=== PATIENT | male | born 1970 | race Caucasian/White ===

== ENCOUNTER 2018-04-16 09:02 | Emergency (ER) | payer BC, SELFPAY ==
--- NOTE | 2018-04-16 09:09 | NUR.NOTE ---
pt reuben that at 0700 he slipped down 3 stairs the incident resulted in right knee pain lateral side 10/30 does not know how his leg rotated
[2018-04-16 09:11] VITALS: BP 161/95; PULSE 99; RESP 16; TEMP 37.2; O2SAT 95
--- NOTE | 2018-04-16 09:19 | ED.GENADUL_ITS ---
Discharge Plan Disposition Patient Disposition: HOME Condition: Improving Discharge Details Chief Complaint: Orthopedic Clinical Impression: Rupture of right quadriceps muscle Primary Care Provider: None,None ED Provider: Herrera Ortiz Home Meds and New Rx's Prescriptions: No Action No Known Home Meds RF: 0 Discharge Instructions Instructions: Knee Immobilizer (ED) Additional Instructions: We discussed her case with Dr. Ramsey of orthopedics. You will likely need operative repair of your quadriceps rupture. If you do not hear from the office, please call [phone] to arrange follow-up time. Ice and elevate the leg to reduce pain and swelling. Wear the brace, weightbearing as tolerated and may use crutches as needed. Tylenol and/or ibuprofen as needed for discomfort. Medical Decision Making Slip and fall on stairs with fall onto a flexed right knee with striking of patella on ground. Pain at knee with swelling. + weightbearing. Denies other injury. On exam he has a palpable defect of the distal third quadriceps and inability to extend the knee against gravity. Concern for quadriceps rupture, must exclude underlying bony injury. Patient given oral analgesia, ice, referred for x-ray which does not reveal underlying bony injury. Case discussed with Dr. Ramsey. We will immobilize the joint, weightbearing as tolerated with crutches, and follow-up in orthopedics for consideration of operative repair. HPI General Mode of arrival: ambulatory . Date/Time Provider Initiated Documentation: 04/16/18 09:10 . Limitations to Documentation: no limitations . Information obtained by: patient . History of Present Illness 47 year old M presents to the emergency department with the chief complaint of Fall downstairs at 7 AM and right knee pain, described as moderate, Quality is described as aching, and is localized to the right and lower extremity. Patient reports no radiation. Patient started experiencing this hour(s) and it has been constant. Rest improves symptom(s), Movement worsens symptoms . Patient notes no other symptoms.; denies headaches. Patient did receive the following treatments prior to arrival, none Related Data Home Medications Medication Instructions Recorded Confirmed Unknown [No Known Home Meds] 04/16/18 04/16/18 Allergies Allergy/AdvReac Type Severity Reaction Status Date / Time No Known Allergies Allergy Unverified 04/16/18 09:13 General Stated Complaint: Orthopedic JOHN: 3 Review of Systems Review of Systems 8 systems reviewed and otherwise neg PFSH Social History Smoking and Tabacco status: Current every day Exam Narrative Exam Narrative: GEN: awake, alert, oriented 3. Pleasant, well groomed, interactive. HEAD: Normocephalic, atraumatic ENT: Mucous membranes moist, oropharynx unremarkable, External ear exam unremarkable EYES: PERRL, EOMI NECK: Full ROM, no MAKENNA, no menigismus CHEST/RESP: Nontender, clear to auscultation bilateral, no wheeze/rhonchi/rales CARDIOVASCULAR: RRR, no murmur, rub artur. 2+ Rad pulse bilateral ABDOMEN: Soft, nontender, no mass. +Bowel sounds EXT: Palpable defect right distal third quadriceps. Patient unable to lift right leg against gravity at the knee joint. Remainder of motor is 5 out of 5 throughout., no edema, no rash Neuro: Grossly normal neurologic exam, conversant, interactive. Psych: Speech fluent, thoughts congruent, affect normal Course Vital Signs Temperature 37.2 C 04/16/18 09:11 Pulse 99 H 04/16/18 09:11 Respiratory Rate 16 04/16/18 09:11 Blood Pressure 161/95 H 04/16/18 09:11 Pulse Oximetry 95 04/16/18 09:11 Temperature 37.2 C 04/16/18 09:11 Temperature Source Skin 04/16/18 09:11 Pulse 99 H 04/16/18 09:11 Respiratory Rate 16 04/16/18 09:11 Respiratory Effort 04/16/18 09:13 Blood Pressure 161/95 H 04/16/18 09:11 Blood Pressure Position Sitting 04/16/18 09:11 Pulse Oximetry 95 04/16/18 09:11 Oxygen Delivery Method Room Air 04/16/18 09:11 Oxygen Flow Rate 0 04/16/18 09:11 Pain Level 9 04/16/18 09:11
--- NOTE | 2018-04-16 09:29 | DI.RAD_ITS ---
SYMPTOM/DIAGNOSIS: KNEE PAIN,? QUAD RUPTURE RIGHT KNEE: No fracture or hemarthrosis is seen. There are degenerative changes, greatest at the medial tibial plateau. There is spurring at the tibial tubercle. IMPRESSION: No evidence of fracture. No definite evidence of quadriceps tendon rupture.
--- NOTE | 2018-04-16 09:30 | NUR.NOTE ---
pt developed flu like symptoms last night that have persisted into today as well as lower right flank pain
[2018-04-16] MEDS: Acetaminophen 500 MG TAB (09:36)
[2018-04-16 10:25] VITALS: BP 161/95; PULSE 99; RESP 16; TEMP 37.2; O2SAT 95
== END 2018-04-16 10:24 | disposition home or self-care (01) ==
PROVIDERS: Emergency Provider Emergency Medicine
DX: S76.111A Strain of right quadriceps muscle, fascia and tendon, initial encounter (principal); W10.8XXA Fall (on) (from) other stairs and steps, initial encounter
CPT/HCPCS: 29505; 73562; 99283; E0114; L1830

== ENCOUNTER 2018-04-19 08:43 | Day surgery (SDC) | payer BC, SELFPAY ==
[2018-04-19] VITALS (7 sets, daily range): BP systolic 136–148; BP diastolic 84–102; PULSE 84–104; RESP 12–20; TEMP 35.9–36.6; O2SAT 92–96
--- NOTE | 2018-04-19 07:56 | W.PREOPHP ---
Date of service: 04/19/18 Time of Service: 09:56 Assessment and Plan (1) Rupture of right quadriceps muscle: Start date: 04/16/18 Current visit: No Status: Acute Clinton is a 47-year-old who suffered a fall onto a flexed right knee. He has an apparent quadriceps rupture. Defect is palpable and he is unable to extend the leg. For this reason, I recommend operative intervention. I reviewed the risk of the procedure to include bleeding, infection, pain, stiffness, damage to nerves and vessels, damage to muscle tendons, weakness, need for repeat procedures, hardware prominence, blood clot. Despite these risks and elects to proceed. He has no other major medical issues. He is obese. I discussed rehabilitation with him. We will proceed with surgery today as an outpatient. Qualifiers: Encounter type: initial encounter Qualified Code(s): S76.111A - Strain of right quadriceps muscle, fascia and tendon, initial encounter History of Present Illness Chief Complaint: Right Quad Rupture Narrative: Clinton is an otherwise active and healthy 47-year-old who suffered a fall onto a flexed right knee. He presented to the emergency department with inability to ambulate, inability to straighten his leg, and pain and swelling. He was diagnosed with a quadriceps rupture. He denies any previous history of pain or discomfort about the right knee. He had no notable fracture. He had no other complaints of pain. He currently has pain and swelling of the right knee. He is wearing a knee brace. He is using crutches. Review of Systems Review of Systems All systems reviewed & are unremarkable except as noted in HPI and below PFSH Social History Smoking and Tabacco status: Current every day Meds Home Medications Medication Instructions Recorded Confirmed Type multivitamin,tx-minerals [Vitamins 1 packet PO BID 04/18/18 04/19/18 History and Minerals] ibuprofen 600 mg PO 04/19/18 History Allergies Allergy/AdvReac Type Severity Reaction Status Date / Time No Known Allergies Allergy Unverified 04/19/18 09:02 Exam Const General: cooperative, healthy appearing, comfortable and no acute distress Nutritional Appearance: obese Orientation: alert, awake and oriented x3 Resp Effort & Inspection: normal respiratory effort Auscultation: wheezes inspiratory wheezes (lower bilaterally, upper right) Cardio Rate: regular rate Rhythm: regular rhythm Extrem Other: Evaluation of the right knee shows significant swelling. There is a palpable defect of the quadriceps musculature just proximal and slightly medial to the patella. He is unable to straight leg raise. He is unable to extend the knee. There is no significant pain to palpation of the patella but significant pain within the defect. No pain around the knee itself at the level of the joint lines. Sensation intact light touch of the femoral nerve distribution, deep insufficient peroneal nerves, and tibial nerve. The foot is warm well perfused with palpable DP PT pulse. He has intact ankle dorsiflexion, plantarflexion, great toe extension and flexion. Results Imaging Imaging Studies: X-ray of the right knee from the emergency department does not show any signs of fracture. There is some old ossific changes at the level of the tibial tuberosity. There is no significant patellar abnormality seen. No clear effusion appreciated.
[2018-04-19] MEDS: Lactated Ringers 1,000 ML 80 ML IV (09:25)
--- NOTE | 2018-04-19 10:12 | W.PM.DSUDISC ---
Discharge Plan Disposition Patient Disposition: HOME Condition: Good Discharge Details Reason For Visit: (R) QUAD TEAR Attending Provider: Landen Ramsey Primary Care Provider: None,None Home Meds and New Rx's Prescriptions: New acetaminophen 500 mg tablet 1,000 mg PO Q8H PRN (Reason: pain) Qty: 90 RF: 3 ibuprofen 600 mg tablet 600 mg PO TID PRNQty: 90 RF: 3 oxycodone 5 mg tablet 5 mg PO Q4H Qty: 12 RF: 0 aspirin 81 mg tablet,delayed release (DR/EC) 81 mg PO BID Qty: 60 RF: 0 Discontinued Vitamins and Minerals Tablet 1 packet PO BID RF: 0 ibuprofen 600 mg Tablet 600 mg PO RF: 0 Discharge Instructions Additional Instructions: Activity: You may bear weight as tolerated on the leg as long as the brace is on and you are using crutches for support. You should keep the brace on at all times when you are up and mobilizing until your follow-up. You should use crutches to support the knee. You may move your ankle and toes as needed. You may unstrap the knee immobilizer when you are not up and your knee is supported. You may apply ice with the CryoCuff this way. Dressing: You should keep the knee dressing in place until your follow-up appointment. If it becomes soiled or it unravels, you should call to notify Dr. Ramsey and/or his staff. You may rewrap or overwrap until the follow-up. Medications: - You should take Tylenol and Ibuprofen around the clock for the first days-weeks. This will cover baseline pain control. - You have been prescribed a stronger medication if needed. If this is necessary, and you need a refill, please call Dr. Ramsey's office or page him through the hospital. Referrals: Landen Ramsey MD [ [facility] STAFF PHYSICIAN] - Equipment/Supplies: Partial Weight Bearing Crutches Activity:: Elevate Remove Dressings/Wound Care:: Do Not Remove Diet:: As Tolerated Discharge Orders Discharge Orders: Discharge Order (Routine); Ordered 04/19/18 Ordered By: Landen Ramsey DS: Diagnosis Discharge Diagnosis (1) Rupture of right quadriceps muscle: Status: Acute
[2018-04-19] MEDS: Bupivacaine 0.25% Pres-Free 30 ML VIAL ×2 (10:18→11:58)
[2018-04-19] MEDS: Bupivacaine LIPOSOME/PF 133 MG/10 ML VIAL IJ ×2 (10:18→11:58)
[2018-04-19] MEDS: oxyCODONE 5 MG TAB PO (13:43)
--- NOTE | 2018-04-20 08:08 | ROE_ITS ---
Date of service: 04/19/18 Time of Service: 12:01 Operative Note DATE OF PROCEDURE: 04/19/18 PRE-OP DIAGNOSIS: Right quadriceps tear POST-OP DIAGNOSIS: same PROCEDURE: Operative repair of right quadriceps tendon SURGEON: Landen Ramsey HEALTH AND SOCIAL CARE TEACHER: Reymundo Grossman ANESTHESIA: GETA and regional ESTIMATED BLOOD LOSS: 50 PATHOLOGY: none sent TOURNIQUET TIME: 0 COMPLICATIONS: None Patient was transported to: PACU Patient's condition: stable Indications: Clinton is a 47-year-old had a fall onto a hyperflexed right knee. He had immediate pain, inability to ambulate, and swelling. He was seen in the emergency department and diagnosed with a quadriceps rupture. Given the nature of this injury I recommended operative fixation. I reviewed the risk of the procedure to include bleeding, infection, pain, stiffness, damage to nerves and vessels, damage to muscles and tendons, weakness, need for repeat procedures. Despite these risks, he elects to proceed. Findings: There is complete rupture of the quadriceps mechanism primarily from the lateral aspect. The entire central portion of the quadriceps tendon was avulsed off the patella. The deep slip of the intermedius tendon was still attached and the majority of the vastus medialis oblique S muscle attachments to the superomedial patella were still intact. The retinaculum is not torn medially was torn laterally. This was repaired using #2 FiberWire pull-through tunnels within the patella and tied over the patella. Procedure Description: Clinton was greeted in the preoperative holding area. His identity was confirmed the correct site was identified and marked. The consent was read the patient and signed. History physical was performed and updated. He was then taken back to the PACU where a fascia iliac block was performed. After successful regional anesthetic was administered he was taken to the operating room. A general anesthetic was given. He is placed in the supine position with all bony prominences well-padded. A bump was placed underneath the right leg to reduce some of the external rotation of his limb. The right leg was prepped with ChloraPrep and draped in a standard fashion. No tourniquet was used. Prophylactic antibiotics in the form of cefazolin were given. A timeout was performed for safe surgery. A midline incision was then made overlying the distal aspect of the thigh and to just below the inferior pole the patella. Sharp dissection was used to the init ial layers. There was significant bursitis seen which was excised. Immediately once through the deep fascia there was a large amount of joint fluid and hematoma expressed. There is an obvious defect of the quadriceps mechanism. The entire central portion of the quadriceps tendon was avulsed cleanly off the bone. There is a split extending laterally to the retinaculum. The deep slip of the intermedius tendon was still attached and that the majority of the vastus medialis oblique S musculature was also attached to the superomedial patella. The torn tendon edges were debrided sharply with a rongeur. The superior aspect of the patella where the quadriceps tendon had been pulled off was also debrided down with a rongeur and then also roughened with a rasp. Excess synovium was also removed. The joint was washed out thoroughly as were the muscle edges. Using a #2 FiberWire, a locking Krak?w stitches within the distal aspect of the central quadriceps tendon both on the underside and the anterior side of the tendon. These were brought out of the tendon edge. 2 FiberWire sutures were placed leaving 4 strands out of the distal stump of the quadriceps tendon. With a 2 mm drill, bone tunnels were placed into the patella. Using a suture passing device I brought the sutures through the tunnels. These were tightened and then tied down completely reapproximating the distal aspect of the quadriceps tendon onto the patella. The knee was tested to 45 degrees without any gapping noted. The split between the vastus medialis and the central quadriceps tendon was then reapproximated with a #1 Vicryl. The distal aspect of the quadriceps tendon and the distal tendinous portion of the vastus medialis was repaired with a #2 FiberWire. The retinacular split laterally was also repaired with a #1 Vicryl. And an area of delamination from the anterior patella was brought over and repaired as well with a #1 Vicryl. The wound was once again irrigated. The periosteum and all soft tissues deep within the wound were injected with a mixture of 30 cc of 0.25% bupivacaine with 10 cc of Exparel. The deep tissues were closed with 0 Vicryl followed by 2-0 Vicryl. The skin was closed with 4-0 Monocryl. A Mepilex dressing was applied. He is placed in a knee immobilizer. At the end of the case, all counts are correct. He was taken back to the PACU in stable condition.
== END 2018-04-19 14:43 | disposition home or self-care (01) ==
PROVIDERS: Visit Provider Student in an Organized Health Care Education/Training Program
PROC: (CPT 27430; principal; 2018-04-19 11:00)
DX: S76.111A Strain of right quadriceps muscle, fascia and tendon, initial encounter (principal); W19.XXXA Unspecified fall, initial encounter; X50.0XXA Overexertion from strenuous movement or load, initial encounter; F17.210 Nicotine dependence, cigarettes, uncomplicated
CPT/HCPCS: 27430; 64450; C1713; 76942; 99223; J0690; J1100; J1885; J2250; J2405; L1830

== ENCOUNTER 2022-08-31 11:13 | Emergency (ER) | payer OTHER, SELFPAY ==
[2022-08-31 11:19] VITALS: BP 203/125; PULSE 91; RESP 18; TEMP 36.8; O2SAT 102
--- NOTE | 2022-08-31 11:30 | DI.RAD_ITS ---
Exam(s) XR HAND LT COMPLETE EXAM: XR HAND LT COMPLETE CLINICAL HISTORY: injury. TECHNIQUE: 2D digital imaging was performed. COMPARISON: No exams were available for comparison FINDINGS: 3 views There is soft tissue avulsions of the 2nd and 3rd fingers. Comminuted fractures of the tuft of the d istal phalanges of these fingers noted, best seen on the lateral views. Avulsed nailbeds evident. N o metallic foreign bodies. No other fractures identified. IMPRESSION: Soft tissue and subjacent bone findings of the tuft of the distal phalanges of 2nd and 3rd fingers. DATA REPOSITORY: RADIATION DOSE DELIVERED:
--- NOTE | 2022-08-31 12:15 | ED.GENADUL_ITS ---
Discharge Plan Disposition Patient Disposition: Home Discharge Details Clinical Impression: Finger laceration, Closed fracture of tuft of distal phalanx of finger, Hypertension Primary Care Provider: None,None ED Provider: Walter Ferreira Home Meds and New Rx's Prescriptions: New lisinopril 20 mg tablet 20 mg PO DAILY Qty: 30 0RF cephalexin 500 mg capsule 500 mg PO Q6H 7 Days Qty: 28 0RF oxycodone-acetaminophen [Percocet] 5-325 mg tablet 1 tab PO Q8H PRN (Reason: pain) Qty: 10 0RF No Action acetaminophen 500 mg tablet 1,000 mg PO Q8H PRN (Reason: pain) Qty: 90 3RF ibuprofen 600 mg tablet 600 mg PO TID PRNQty: 90 3RF oxycodone 5 mg tablet 5 mg PO Q4H Qty: 12 0RF aspirin 81 mg tablet,delayed release (DR/EC) 81 mg PO BID Qty: 60 0RF Discharge Instructions Instructions: Finger Fracture (ED), Finger Laceration (ED), Hypertension (ED) Stand Alone Forms: Work Release Discharge Data Discharge Date/Time-TO BE ENTERED AT DEPARTURE: 08/31/22 14:10 HPI General Date/Time Provider Initiated Documentation: 08/31/22 11:32 . History of Present Illness described as moderate, Quality is described as other (injury), and is localized to the upper extremity. Patient started experiencing this minute(s) and it has been constant. HPI Narrative: 52 year old male presents to the ED with c/o finger injury at work today [employer]. He was cutting a sheet plywood on table saw, and as he was pushing it through his slipped forward, hitting the blade. He says it hit the tip of his 2nd and 3rd fingers. He had it cleaned and dressed at work prior to coming in. He is right hand dominant, unknown last tetanus. Pt noted to have very high BP readings in the ED, denies any known hx of htn, although admits he hasn't been to a doctor in some time. Related Data Home Medications Medication Instructions Recorded Confirmed acetaminophen 500 mg tablet 1,000 mg PO Q8H PRN pain #90 tabs 04/19/18 08/22/18 aspirin 81 mg tablet,delayed 81 mg PO BID #60 tabs 04/19/18 08/22/18 release ibuprofen 600 mg tablet 600 mg PO TID PRN #90 tabs 04/19/18 08/22/18 oxycodone 5 mg tablet 5 mg PO Q4H #12 tabs 04/19/18 08/22/18 cephalexin 500 mg capsule 500 mg PO Q6H 7 days #28 caps 08/31/22 lisinopril 20 mg tablet 20 mg PO DAILY #30 tabs 08/31/22 oxycodone-acetaminophen 5 mg-325 1 tab PO Q8H PRN pain #10 tabs 08/31/22 mg tablet (Percocet) Previous Rx's Medication Instructions Recorded acetaminophen 500 mg tablet 1,000 mg PO Q8H PRN pain #90 tabs 04/19/18 aspirin 81 mg tablet,delayed 81 mg PO BID #60 tabs 04/19/18 release ibuprofen 600 mg tablet 600 mg PO TID PRN #90 tabs 04/19/18 oxycodone 5 mg tablet 5 mg PO Q4H #12 tabs 04/19/18 cephalexin 500 mg capsule 500 mg PO Q6H 7 days #28 caps 08/31/22 lisinopril 20 mg tablet 20 mg PO DAILY #30 tabs 08/31/22 oxycodone-acetaminophen 5 mg-325 1 tab PO Q8H PRN pain #10 tabs 08/31/22 mg tablet (Percocet) Allergies Allergy/AdvReac Type Severity Reaction Status Date / Time No Known Allergies Allergy Unverified 07/11/18 14:49 General Stated Complaint: Laceration JOHN: 3 PFSH All Active Problems (Updated 05/28/18 @ 17:14 by Mechelle Robertson) Finger laceration (Acute) Closed fracture of tuft of distal phalanx of finger (Acute) Hypertension (Chronic) Rupture of right quadriceps muscle (Acute) DOS: 04/19/18 Dr. Ramsey Social History Smoking/Tobacco Use Status: Current every day Tobacco Type: cigarettes Years smoked: 34 Smoking risk assessment performed?: Yes Alcohol Intake: current Alcohol Intake frequency: holidays/special occasions only Drug use: Daily Substance use type: marijuana Housing: other Do you feel safe at home: Yes Do you feel safe in your relationship?: Yes Exam Narrative Exam Narrative: Const: well appearing, no acute distress, morbidly obese HEENT: normocephalic, atraumatic; MMM Lungs: CTA, no wheezing or rales Heart: RRR Ext: well perfused Neuro: non-focal Skin: no rashes Left 2nd digit with jagged injury to distal aspect of finger involving distal aspect nail which is avulsed away, and essentially a flap ~2cm total. 3rd digit with lac to the most distal aspect that creates a flap, ~2cm length in total. Course 52 yo with fingers vs table saw, noted to be very hypertensive, although asymptomatic. discussed work up for this, he declined, says he doesn't have insurance for another month and wants to wait. I discussed risks of uncont rolled HTN with him, including GA, CVA, renal dz, even , which he verbalized understanding. Will plan on starting some meds but needs f/u and further eval to adequately get it under control. Reevaluation(s) Initial Evaluation: Left 2nd and 3rd fingers digitally blocked with 1% lidocaine with good effect. he was cleaned initially by RN with NS and syringe irrigation, and again by me. Vital Signs Vital signs: Vital Signs Temperature 36.8 C 08/31/22 11:19 Pulse 91 H 08/31/22 11:19 Respiratory Rate 18 08/31/22 11:19 Blood Pressure 203/125 H 08/31/22 11:19 Pulse Oximetry 102 H 08/31/22 11:19 Temperature 36.8 C 08/31/22 11:19 Pulse 91 H 08/31/22 11:19 Respiratory Rate 18 08/31/22 11:19 Respiratory Effort Normal, Non-Labored 08/31/22 11:43 Blood Pressure 203/125 H 08/31/22 11:19 Pulse Oximetry 102 H 08/31/22 11:19 Oxygen Delivery Method Room Air 08/31/22 11:19 Oxygen Flow Rate 0 08/31/22 11:19 Procedures Laceration Laceration 1: Size (cm): 2 Description: flap Local Anesthetic: Lidocaine 1% Skin layer closed with: nylon Size (cm): 5-0 Number of sutures: 5 Technique: simple, interrupted Laceration 2: Size (cm): 2 Description: flap Skin layer closed with: nylon Size (cm): 5-0 Number of sutures: 5 Technique: simple, interrupted
--- NOTE | 2022-08-31 15:01 | PDOC.CMPRO ---
Date of service: 08/31/22 Time of Service: 15:01 Care Management Progress Note Progress Note Text Progress Note Text: At the request of nursing staff, BENJAMÍN meets with Clinton to address financial concerns. He advises he recently started a new job and won't be covered by insurance until the end of August. Further discussion reveals that he is being treated in the ED for injuries suffered at work. Therefore, his ED visit will be covered by Workmen's Comp. While in the ED, Clinton is found to be hypertensive and is prescribed Lisinopril 20 mg daily. BENJAMÍN contacts his pharmacy ([facility]) to inquire about the cost of the prescription ($19.99). When the cost is relayed to Clinton, he advises he can pay for it out of pocket and declines assistance with paying for the prescription. Lastly, BENJAMÍN contacts [facility] to request they schedule an ED follow up appointment for Clinton and to advise them he is being started on Lisinopril.
--- NOTE | 2022-09-01 11:08 | NUR.NOTE ---
Nursing Note: Accessed pt chart for work release.
--- NOTE | 2022-09-05 18:35 | NUR.NOTE ---
Nursing Note: Patient called asking for a work note to get him through the when his ortho appt is. Antelmo Suarez reviewed the chart and wrote for him to be off through . Patient notified of the new work note.
== END 2022-08-31 14:10 | disposition home or self-care (01) ==
PROVIDERS: Emergency Provider Emergency Medicine
DX: S62.661B Nondisplaced fracture of distal phalanx of left index finger, initial encounter for open fracture (principal); S62.663B Nondisplaced fracture of distal phalanx of left middle finger, initial encounter for open fracture; I10 Essential (primary) hypertension; F17.210 Nicotine dependence, cigarettes, uncomplicated; Z79.82 Long term (current) use of aspirin; W31.2XXA Contact with powered woodworking and forming machines, initial encounter; Y93.H3 Activity, building and construction; Y92.89 Other specified places as the place of occurrence of the external cause; Y99.0 Civilian activity done for income or pay
CPT/HCPCS: 12002; 90472; 99283; 73130

== ENCOUNTER 2022-09-23 15:43 | Outpatient (REF) | payer SELFPAY ==
[2022-09-23 16:43] LABS: Abs Immature Grans 0.04 10^3/uL (0.0-0.06); Absolute Basophil Count 0.08 10^3/uL (0.0-0.2); Absolute Eosinophil Count 0.18 10^3/uL (0.0-0.7); Absolute Monocyte Count 0.61 10^3/uL (0.1-0.8); Absolute Neutrophil Count 6.12 10^3/uL (1.2-6.7); Basophils % 0.9; HGB 16.5 g/dL (13.5-17.5); Immature Grans % 0.5; Lymphocytes % 20.4; MCH 32.1 pg (27.0-33.0); MCHC 35.1 % (32.0-36.0); MCV 91 fL (80-95); MPV 11.6 fL (8.0-11.0); Monocytes % 6.9; Neutrophils % 69.3; Platelet Count 225 10^3/uL (130-400); RBC 5.14 10^6/uL (4.36-5.78); RDW 12.6 % (11.8-14.1); RDW-SD 42.7 fL; WBC 8.83 10^3/uL (4.4-10.8)
[2022-09-23 17:52] LABS: ALT 26 U/L (16-63); AST 23 U/L (15-37); Albumin 3.7 g/dL (3.4-5.0); Alkaline Phosphatase 99 U/L (46-116); Anion Gap 9.5 mmol/L (3-11); BUN 13 mg/dL (7-18); Bilirubin, Total 0.3 mg/dL (0.2-1.0); CO2 26.5 mmol/L (21.0-32.0); Calculated LDL 163 mg/dL (<100); Chloride 102 mmol/L (98-107); Cholesterol 251 mg/dL (<200); Glucose 108 mg/dL (74-106); HDL Cholesterol 36 mg/dL (40-60); Potassium 3.8 mmol/L (3.5-5.1); Sodium 138 mmol/L (136-145); Total Protein 7.8 g/dL (6.4-8.2); Triglyceride 263 mg/dL (<150)
[2022-09-23 17:56] LABS: Hemoglobin A1C 5.7 % (<5.7)
[2022-09-23 18:41] LABS: Vitamin D 25 Total 16.2 ng/mL (30-100)
[2022-09-26 09:57] LABS: Hepatitis C Ab w Rflx HCV PCR Negative (Negative)
[2022-09-26 10:18] LABS: HIV-1/2 Ag & Ab Screen Negative (Negative)
== END 2022-09-23 15:44 | disposition home or self-care (01) ==
LOC: NCHCN 15:43
PROVIDERS: PCP Nurse Practitioner Family; Visit Provider Nurse Practitioner Family
DX: Z00.00 Encounter for general adult medical examination without abnormal findings (principal); I10 Essential (primary) hypertension; E66.01 Morbid (severe) obesity due to excess calories; Z11.4 Encounter for screening for human immunodeficiency virus [HIV]; Z11.59 Encounter for screening for other viral diseases; R73.09 Other abnormal glucose; E55.9 Vitamin D deficiency, unspecified
CPT/HCPCS: 80053; 80061; 82306; 86803; 87389; 83036; 85025

== ENCOUNTER 2023-03-07 11:39 | Day surgery (SDC) | payer OTHER, SELFPAY ==
[2023-03-07 12:16] VITALS: BP 191/138; PULSE 89; RESP 18; TEMP 36.8; O2SAT 96
[2023-03-07] MEDS: Lisinopril 20 MG TAB PO (12:46)
--- NOTE | 2023-03-07 13:01 | PDOC.DSDIS_ITS ---
Date of service: 03/07/23 Time of Service: 13:05 Discharge Plan Disposition Patient Disposition: Home Condition: Good Discharge Details Reason For Visit: Lt index finger nail revision;Lt middle trigger Attending Provider: Landen Ramsey Primary Care Provider: Shobha Jacobs Home Meds and New Rx's Prescriptions: New hydrocodone-acetaminophen 5-325 mg tablet 1 tab PO Q6H PRN (Reason: severe pain) Qty: 4 0RF Rx Instructions: Take one tablet up to every 6 hours as needed for severe postoperative pain acetaminophen 500 mg tablet 500 mg PO Q6H PRN (Reason: pain) Qty: 60 2RF ibuprofen 600 mg tablet 600 mg PO TID PRN (Reason: pain) Qty: 60 0RF Continued lisinopril 20 mg tablet 20 mg PO DAILY Qty: 30 0RF Discontinued acetaminophen 500 mg tablet 1,000 mg PO Q8H PRN (Reason: pain) Qty: 90 3RF ibuprofen 600 mg tablet 600 mg PO TID PRNQty: 90 3RF Discharge Instructions Additional Instructions: Nail Revision Discharge Instructions Activity: You may use your fingers for light activity. You should limit any excessive motion or forceful gripping until follow-up. Dressings: You should keep the initial surgical dressing in place for at least 3 days. You may remove your dressings and get the wound wet after 3 days. You should keep the dressings and the wound clean at all times. You may keep the initial dressing in place until your follow-up but keep the wound covered with light gauze until the sutures are removed. Medications: - You should take Tylenol and Ibuprofen around the clock as prescribed or per senior interactive producer's recommendations. - You have Hydrocodone prescribed for breakthrough pain control. Take only as needed and limit use as much as possible. This may cause constipation. Follow-up: 7-10 days for wound check and suture removal. Stand Alone Forms: Roxy Stewart Finger Release Referrals: Landen Ramsey MD [ [facility] - Activity:: Elevate Remove Dressings/Wound Care:: 72 hours Shower/Bathe:: 72 hours and Cover Diet:: As Tolerated Discharge Orders Discharge Orders: Discharge Order (Routine); Ordered 03/07/23 Ordered By: Mechelle Robertson
[2023-03-07] MEDS: Lidocaine 1% Multi-Dose W/EPI 1/100,000 50 ML VIAL (13:59)
[2023-03-07] MEDS: Sodium Bicarbonate 50 MEQ/50 ML SYR (14:00)
[2023-03-07 14:14] VITALS: BP 155/95; PULSE 84; RESP 16; TEMP 36.7; O2SAT 96
--- NOTE | 2023-03-07 14:37 | W.PM.OP ---
Date of service: 03/07/23 Time of Service: 13:30 Operative Note Operative Note DATE OF PROCEDURE: 03/07/23 PRE-OP DIAGNOSIS: Trigger finger, left middle finger Dystrophic nail, left index finger POST-OP DIAGNOSIS: same PROCEDURE: Trigger Finger Release -left middle finger Trimming of dystrophic nail, left index finger SURGEON: Landen Ramsey ANESTHESIA TYPE: Local By Surgeon Refer to Anesthesia Record ESTIMATED BLOOD LOSS: 0 PATHOLOGY: none sent COMPLICATIONS: None Patient was transported to: same day Patient's condition: stable Indications: I have seen Clinton in clinic for symptoms of a trigger finger. The catching, clicking, locking, and pain limited function. The diagnosis of trigger finger was evident. The symptoms had not responded to conservative measures. I discussed trigger finger release with the patient. I reviewed the risks of the procedure to include, but not limited to, bleeding, infection, pain, stiffness, incomplete release, damage to nerves or vessels, continued catching, recurrence. Despite these risks, the patient elected to proceed. He also has deformity of the index finger nail due to previous crush injury with involvement of the nail. He some difficulties with trimming and there was deformity of the nail therefore he requested this be done and evaluated in a controlled department at the same time as a trigger finger. Findings: There was a tightened A1 kelton which was released. The flexor tendons were inspected and the patient was able to move the finger without any catching, clicking, or locking. There was a split of the distal aspect of the nail plate. However, I was able to resect the split down to normal-appearing single nail plate, removing an accessory tissue. However, there is no 2 nails once completed with this resection. Procedure Description: Clinton was greeted in the preoperative holding area where the correct side was identified and marked. The consent was reviewed with the patient and signed. All questions were answered. Clinton was taken back to the operating room. The patient was placed into the supine position on the operating room table with the left arm on an arm board. All bony prominences were well padded. No prophylactic antibiotics were administered since this was a clean, elective hand surgical case. The left arm was then prepped with Chloraprep and draped in a standard fashion with stockinette and extremity drape. A timeout to confirm correct identity, side and site, procedure, allergies, anesthesia, and medical concerns was performed. The surgical site was marked as a longitudinal incision directly over the A1 kelton of the involved digit. This was confirmed with palpation during finger flexion. This area, overlying the metacarpal head, was then anesthetized with 1% Lidocaine. The patient tolerated this well and once the anesthetic had setup, the procedure began. A longitudinal incision was made through skin only, approximately 1cm. The deep tissues were dissected bluntly. Once the A1 kelton and flexor tendons were identified the soft tissue including neurovascular structures were retracted medially and laterally. There were no crossing structures over the A1 kelton. The proximal edge of the kelton was identified and the kelton was incised with tenotomy scissors. There was a release of the tendons once this was fully released. The tendons were then removed from the wound and inspected. Excess synovium was resected. The tendons were then returned and the patient was asked to move the finger into deep flexion and back to extension. There was no recreation of the pre-operative symptoms. The hand was then once more inspected for any A0 kelton or area of possible constriction. The wound was then irrigated and the skin was closed with a 4-0 Nylon. Evaluation of the left index finger nail showed there was a split at the end of the nail with a palmar curvature to the nail plate. I was able to resect this nail back such that I was able to remove the 2 nail plates. There is now a single nail plate at the end of the finger. There was some remnant sterile matrix which was removed from the edge of the nail. Given that there is now only 1 nail with a fairly normal contour I did not proceed with any further nail interventions. I trimmed the nail successfully back to the edge of the sterile matrix. This was dressed with Xeroform, gauze and a Conform dressing. The patient tolerated the procedure well and was returned to the Same Day Surgery area in a stable condition suffering no known complication.
== END 2023-03-07 14:31 | disposition home or self-care (01) ==
PROVIDERS: PCP Nurse Practitioner Family; Visit Provider Student in an Organized Health Care Education/Training Program
PROC: (CPT 26055; principal; 2023-03-07 14:00)
DX: M65.332 Trigger finger, left middle finger (principal); W23.1XXA Caught, crushed, jammed, or pinched between stationary objects, initial encounter; L60.3 Nail dystrophy
CPT/HCPCS: 26055; 11750; J2004

== ENCOUNTER 2024-11-05 03:34 | Outpatient (CLI) | payer OTHER, SELFPAY ==
--- NOTE | 2024-11-05 | DI.RAD_ITS ---
Exam(s) XR KNEE LT 3V AP,LAT,SANTO EXAM: XR KNEE LT 3V AP,LAT,SANTO CLINICAL HISTORY: Z02.71 DISABILITY DETERMINATION BILAT KNEE PAIN. TECHNIQUE: 2D digital imaging was performed of the left knee. Three images were obtained. AP, lateral and PA tunnel views were obtained. COMPARISON: There are no priors for comparison. FINDINGS: BONES: No acute fracture is present. No bony destructive lesion is seen. JOINTS: There is mild narrowing and small osteophytes seen in the medial femoral tibial joint. No joint effusion is seen. No loose body. SOFT TISSUE: Normal. IMPRESSION: Mild degenerative changes in the left knee. DATA REPOSITORY: RADIATION DOSE DELIVERED:
--- NOTE | 2024-11-05 | DI.RAD_ITS ---
Exam(s) XR KNEE RT 3V AP,LAT,SANTO EXAM: XR KNEE RT 3V AP,LAT,SANTO CLINICAL HISTORY: Z02.71 DISABILITY DETERMINATION BILAT KNEE PAIN. TECHNIQUE: 2D digital imaging was performed of the right knee. Three views obtained. AP, lateral and PA tunnel views were obtained. COMPARISON: Comparison examination is 04/16/2018. FINDINGS: BONES: No acute fracture is present. No bony destructive lesion is seen. JOINTS: Mild degenerative changes are seen involving all 3 joint compartments with varying degrees of joint space narrowing and osteophytosis. No joint effusion is seen. SOFT TISSUE: There is a prominent well-circumscribed osseous density anterior to the tibia on the lateral view. IMPRESSION: [id number] degenerative changes of the right knee. DATA REPOSITORY: RADIATION DOSE DELIVERED:
--- NOTE | 2024-11-05 | DI.RAD_ITS ---
Exam(s) XR HIP RT COMPLETE AP PELVIS EXAM: XR HIP RT COMPLETE AP PELVIS CLINICAL HISTORY: Z02.71 DISABILITY DETERMINATION RT HIP AND PELVIC PAIN. TECHNIQUE: 2D digital imaging was performed of the right hip. Four images were obtained. AP pelvis and lateral right hip views were obtained. COMPARISON: No exams were available for comparison FINDINGS: BONES: No acute fracture is present. No bony destructive lesion is seen. JOINTS: No dislocation present. There are marked degenerative changes seen in the left hip with loss of the joint space and osteophytes present. The right hip shows mild degenerative changes. The sacroiliac joints and symphysis pubis are unremarkable. SOFT TISSUE: Normal. IMPRESSION: 1. Mild degenerative changes seen in the right hip. 2. Marked degenerative changes seen in the left hip. DATA REPOSITORY: RADIATION DOSE DELIVERED:
== END 2024-11-05 03:54 ==
LOC: DI 03:34
PROVIDERS: PCP Nurse Practitioner Family; Visit Provider Pediatrics Pediatric Rheumatology
DX: M16.0 Bilateral primary osteoarthritis of hip (principal); Z02.71 Encounter for disability determination; M17.0 Bilateral primary osteoarthritis of knee
CPT/HCPCS: 73562; 73502